=== PATIENT | male | born 2005 | race Caucasian/White ===

== ENCOUNTER 2024-06-28 09:01 | Emergency (ER) | payer MEDICAID, SELFPAY ==
[2024-06-28 09:11] VITALS: BP 148/79; PULSE 78; RESP 18; TEMP 36.7; O2SAT 100
--- NOTE | 2024-06-28 09:19 | XR_ITS ---
Examination: CT abdomen with intravenous contrast CT pelvis with intravenous contrast 2-D coronal reconstructions 2-D sagittal reconstructions Date and time of exam:June 28, 2024 1139 hours INDICATIONS: Onset right lower abdominal pain beginning 4 days ago. CTDI: vol (mGy) 6.34 DLP: (mGycm) 359 Technique: Multiple axial sections of the abdomen and pelvis have been obtained. 64 slice high-resolution scanner used. 3 mm axial sections have been obtained, post intravenous injection 60 cc [id number] 2-D sagittal, coronal reconstructions obtained. Low dose protocols were performed. One or more of the following dose reduction techniques were used; automated exposure control, adjustment of the mA and/or KV according to patient size, use of iterative reconstruction technique. Findings: No focal liver or splenic lesions Suspicious for mild fluid around the gallbladder wall axial image 90 No pancreatic mass No hydronephrosis Aorta normal size No bowel obstruction Appendix is not diagnostically visualized No pericecal inflammatory change No bowel obstruction Urinary bladder intact Mild free fluid in the pelvis IMPRESSION: Recommend gallbladder sonography to exclude acute cholecystitis Appendix is not diagnostically visualized, no pericecal inflammatory change, clinical correlation advised
[2024-06-28] MEDS: ONDANSETRON INJ 2 MG/ML INJ 2 ML 4 MG IV (09:32)
[2024-06-28] MEDS: SODIUM CHLORIDE 0.9% 1000 ML 1,000 ML 999 ML IV (09:32)
[2024-06-28] MEDS: MORPHINE SULF INJ 10 MG/ML VIAL 4 MG IVP (09:34)
[2024-06-28 09:57] LABS: Basophils % (Auto) 0 % (0-2.5); Eosinophils # (Auto) 0.1 Thou/mm3 (0.0-0.5); Eosinophils % (Auto) 1 % (0-10); Hematocrit 48.3 % (41.0-53.0); Hemoglobin 17.1 g/dL (13.5-16.0); Immature Granulocytes % (Auto) 0 % (0-0); Immature Granulocytes Auto 0.05 Thou/mm3 (0.00-0.00); Lymphocytes # (Auto) 1.2 Thou/mm3 (1.0-4.8); Lymphocytes % (Auto) 10 % (10-50); Mean Corpuscular HGB Conc 35.4 g/dl (31.0-37.0); Mean Corpuscular Hemoglobin 31.7 pg (25.0-35.0); Mean Corpuscular Volume 89 fL (80-100); Monocytes # (Auto) 0.8 Thou/mm3 (0.0-0.8); Monocytes % (Auto) 6 % (0-12); Neutrophils # (Auto) 10.4 Thou/mm3 (1.8-7.7); Neutrophils % (Auto) 83 % (37-80); Nucleated Red Blood Cell % 0 /100 WBC (0); Platelet Count 232 Thou/mm3 (140-440); RDW Standard Deviation 39.7 fL (35.1-43.9); White Blood Count 12.5 Thou/mm3 (4.5-11.0)
--- NOTE | 2024-06-28 10:11 | PD.EDABDPN ---
ED Abdominal Pain RME/HPI General Chief Complaint: Abdominal Pain Stated complaint: ABD PAIN, OFF/ON 4-5 DAYS Time seen by provider: 06/28/24 10:08 Arrival date/time: 06/28/24 09:01 Limitations: no limitations RME / HPI RME / HPI narrative: 19 year old male with history of depression and bipolar disorder presents to the ED for evaluation of abdominal pain beginning 3 days ago. Described as aching in sensation that is located most just below umbilicus that radiates to the right lower quadrant. Accompanied by nausea, vomiting, and diarrhea. Denies any history of similar pain or contacts with similar GI symptoms. Denies fevers, chills, cough, or urinary symptoms. Denies any abdominal surgeries. Related Data Home Medications ?Medication ?Instructions ?Recorded ?Confirmed escitalopram oxalate 20 mg tablet 20 mg PO QDAY 05/17/21 05/17/21 lurasidone 20 mg tablet (Latuda) 20 mg PO QDAY 05/17/21 05/17/21 lurasidone 40 mg tablet (Latuda) 40 mg PO QDAY 05/17/21 05/17/21 Previous Rx's ?Medication ?Instructions ?Recorded dicyclomine 20 mg tablet 20 mg PO BID #20 tabs 06/28/24 ondansetron HCl 4 mg tablet 4 mg PO TID PRN nausea and 06/28/24 vomiting 8 days #20 tabs Allergies Allergy/AdvReac Type Severity Reaction Status Date / Time No Known Allergies Allergy Verified 06/28/24 09:04 Review of Systems Review of Systems Narrative Review of Systems: GEN: No fever, no chills, no weight loss EYES: No discharge, no visual changes, no pain HEENT: No ear pain, no congestion, no sore throat PULM: No shortness of breath, no cough, no congestion CV: No chest pain, no palpitations GI: +n/v/d, + pain, no constipation : No frequency, no urgency, no dysuria MUSC/SKEL: No joint pain, no back pain SKIN: No rash NEURO: No weakness, no headache Past Medical History Past Medical History NEUROLOGIC: Positive Cerebrovascular Accident CARDIAC: Positive Hypertension RESPIRATORY: Positive Asthma (as a kid) PSYCHO/SOCIAL: Positive Bipolar Disorder, Depression, Behavior Problems and Self-Mutilation Family History FAMILY HISTORY: Positive Family Cardiac Disorders Social History SMOKING STATUS: Current every day smoker SUBSTANCE USE: marijuana (occasionally) ED Exam General Limitations: Present no limitations General appearance: Present alert and in no apparent distress Head Head exam: Present atraumatic, normocephalic and normal inspection Eye Eye exam: Present normal appearance, PERRL and EOMI ENT ENT exam: Present normal exam, normal oropharynx and mucous membranes moist Neck Neck exam: Present normal inspection, full ROM and trachea midline Chest Chest inspection: Present normal inspection and symmetric chest wall rise Respiratory Respiratory exam: Present normal lung sounds bilaterally Cardiovascular Cardiovascular exam: Present regular rate, normal rhythm and normal heart sounds Abdominal Exam Abdominal exam: Present soft, tenderness (RLQ ) and normal bowel sounds Extremities Exam Extremities exam: Present normal inspection and full ROM Back Exam Back exam: Present normal inspection and full ROM Neurological Exam Neurological exam: Present alert, oriented X3 and CN II-XII intact Psychiatric Psychiatric exam: Present normal affect and normal mood Skin Skin exam: Present warm, dry, intact and normal color Course Quality Measures none Orders Category Date Time Status CT Screening NOW Care 06/28/24 09:19 Active Insert IV NOW Care 06/28/24 09:[address] abdomen pelvis w con Stat Exams 06/28/24 09:19 Completed CBC Stat Lab 06/28/24 09:35 Completed Comprehensive Metabolic Panel Stat Lab 06/28/24 09:35 Completed Drug Screen,Urine Stat Lab 06/28/24 12:15 Completed Lipase Stat Lab 06/28/24 09:35 Completed UA, C/S IF [Urinalysis, C/S if Indicated] Stat Lab 06/28/24 12:15 Completed Morphine Inj Med 06/28/24 09:19 Discontinued 4 mg IVP X1 ONE Ondansetron Inj [Zofran Inj] Med 06/28/24 09:19 Discontinued 4 mg IV X1 ONE Sodium Chloride 0.9% 1000 ml [Ns] 1,000 ml Med 06/28/24 09:19 Discontinued IV 999 mls/hr Vital Signs Vital signs: Vital Signs Temperature 98.1 F 06/28/24 09:11 Pulse Rate 78 06/28/24 09:11 Respiratory Rate 18 06/28/24 09:11 Blood Pressure 148/79 H 06/28/24 09:11 Pulse Oximetry (%) 100 06/28/24 09:11 Oxygen Delivery Method Room Air 06/28/24 09:11 Pulse ox is 100% on room air which is adequate. Abdominal Pain MDM MDM Narrative MDM Narrative:: Luz Maria Talley am scribing for and in the presence of Dr. Schreiber. 19 year old male presented to the ED for right lower abdominal pain beginning 3 days ago. On examination patient had right lower quadrant tenderness. Plan to order abdomen/pelvis to rule out appendicitis. CT scan was negative for appendicitis. Patient diagnosed with biliary colic and prescribed Bentyl and Zofran. Advised patient follow up with PMD. Patient data External records reviewed:: [facility] previous records (I reviewed ED visit on 10/28/2023 ) Clinical information provided by:: patient Social determinants that could affect healthcare access:: none Patient has the following chronic illnesses:: None reported How is presenting disease/condition affected by chronic disease/condition?: no chronic disease Evaluation data The following diagnostics were reviewed and interpreted by me:: lab results and radiology exam(s) Lab and/or radiology exams considered but not ordered:: None Interpretation Summary: Ordering Physician: Ga BRYANT)Grant NP Date of Service: 06/28/24 Procedure(s): CT abdomen pelvis w con Accession Number(s): [id number] cc: Ga BRYANT),Grant GROVER; Gerson Mortensen MD; Sushil Gupta MD~ Examination: CT abdomen with intravenous contrast CT pelvis with intravenous contrast 2-D coronal reconstructions 2-D sagittal reconstructions Date and time of exam:June 28, 2024 1139 hours INDICATIONS: Onset right lower abdominal pain beginning 4 days ago. CTDI: vol (mGy) 6.34 DLP: (mGycm) 359 Technique: Multiple axial sections of the abdomen and pelvis have been obtained. 64 slice high-resolution scanner used. 3 mm axial sections have been obtained, post intravenous injection 60 cc [id number] 2-D sagittal, coronal reconstructions obtained. Low dose protocols were performed. One or more of the following dose reduction techniques were used; automated exposure control, adjustment of the mA and/or KV according to patient size, use of iterative reconstruction technique. Findings: No focal liver or splenic lesions Suspicious for mild fluid around the gallbladder wall axial image 90 No pancreatic mass No hydronephrosis Aorta normal size No bowel obstruction Appendix is not diagnostically visualized No pericecal inflammatory change No bowel obstruction Urinary bladder intact Mild free fluid in the pelvis IMPRESSION: Recommend gallbladder sonography to exclude acute cholecystitis Appendix is not diagnostically visualized, no pericecal inflammatory change, clinical correlation advised Dictated By: Sushil Gupta MD Signed By: <Electronically signed by Sushil Gupta MD in OV> 06/28/24 1211 Medications / Prescriptions Medications or Prescriptions considered but not ordered:: None Medication administrations:: Medication Administration History Discontinued Medications Sodium Chloride (Ns) 1,000 mls @ 999 mls/hr IV .Q1H1M ONE Stop: 06/28/24 10:19 Last Infusion: 06/28/24 10:09 Dose: Infused Documented By: Admin: 06/28/24 09:32 Dose: 999 mls/hr Documented By: KRANTHI Morphine Sulfate (Morphine Sulf Inj 10 Mg/Ml Vial) 4 mg IVP X1 ONE Stop: 06/28/24 09:20 Last Admin: 06/28/24 09:34 Dose: 4 mg Documented By: KRANTHI Ondansetron HCl (Ondansetron Inj 2 Mg/Ml Inj 2 Ml) 4 mg IV X1 ONE; Protocol Stop: 06/28/24 09:20 Last Admin: 06/28/24 09:32 Dose: 4 mg Documented By: KRANTHI See above Consultations Consultation(s) initiated? (list below): No Diagnosis Differential diagnosis abdominal pain: abdominal pain, acute appendicitis, calculus of kidney, constipation and diverticulitis Most likely diagnosis given after review of the tests above:: Biliary colic Admission Indicated Admission indicated?: not indicated Admission Request Was there a request for admission?: No Disposition Plan Disposition Plan: Discharge Discharge Attestation Discharge Attestation: The patient and all family members were given an opportunity to ask questions and understood the discharge instructions. Discharge instructions specifically effects, indications for sooner follow up or return to the emergency department, and the expected course of current diagnosis. Patient condition: Stable Discharge Plan Plan Patient Disposition: HOME (Self Care) Prescriptions/Referrals Prescriptions/Med Rec: New ondansetron HCl 4 mg tablet 4 mg PO TID PRN (Reason: nausea and vomiting) 8 Days Qty: 20 0RF dicyclomine 20 mg tablet 20 mg PO BID Qty: 20 0RF No Action escitalopram oxalate 20 mg tablet 20 mg PO QDAY Patient Comments: TAKE 1 TABLET BY MOUTH AT BEDTIME Latuda 40 mg tablet 40 mg PO QDAY Patient Comments: TAKE 1 TABLET BY MOUTH ONCE DAILY IN THE EVENING Latuda 20 mg tablet 20 mg PO QDAY Patient Comments: TAKE 1 TABLET BY MOUTH ONCE DAILY WITH DINNER Referrals: Gerson Mortensen MD [Primary Care Provider] - In 1 week Problem List Clinical Impression: Biliary colic Patient/Caregiver Discharge Instructions Discharge Activity: activity as tolerated Diet Instructions: Make sure to follow-up with your primary care physician and get referred to the general surgery for evaluation for possible cholecystectomy Education Materials: What Are Gallstones, Treating Gallstones, Discharge Instructions for ..., ED Gallstones with Biliary Colic Print Language: Lithuanian Stand Alone Forms: [employer] Award Info., Patient Portal Info Letter
[2024-06-28 10:17] LABS: Alanine Aminotransferase 145 U/L (10-49); Albumin, Serum 5.5 gm/dL (3.5-5.0); Albumin/Globulin Ratio 1.8 (1.2-2.2); Alkaline Phosphatase 68 U/L (46-116); Anion Gap 8 (7-16); Aspartate Amino Transferase 93 U/L (0-34); BUN/Creatinine Ratio 10 Ratio (12-20); Bilirubin,Total 0.6 mg/dL (0.3-1.2); Blood Urea Nitrogen 11 mg/dL (9-23); Carbon Dioxide 25.9 mMol/L (20.0-31.0); Chloride 106 mMol/L (98-107); Creatinine (Component) 1.1 mg/dL (0.6-1.3); Estimated Creatinine Clearance 106.5 mL/min (>60); Glucose 90 mg/dL (74-106); Lipase 34 U/L (12-53); Osmolality,Calculated 278 (275-295); Potassium 4.2 mMol/L (3.4-5.1); Sodium 140 mMol/L (136-145); Total Protein 8.5 gm/dL (5.7-8.2); eGFR > 60 See Note
[2024-06-28 10:44] VITALS: BP 141/86; PULSE 61; RESP 18; TEMP 37; O2SAT 99
[2024-06-28 12:25] LABS: Collection Type, Urine Clean Catch
[2024-06-28 12:43] LABS: Amphetamine/Methamp Scrn,U Negative (Negative); Barbiturate Screen,Urine Negative (Negative); Benzodiazepines Screen,Urine Negative (Negative); Benzoylecgonine Screen, Ur Negative (Negative); Bilirubin,Urine Negative (Negative); Blood,Urine Negative (Negative); Clarity,Urine Clear (Clear/Hazy); Color,Urine Yellow (Lt Yel-Yel); Culture Indicated,Urine Not Indicated; Fentanyl Screen,Urine Negative (Negative); Glucose, Urine Negative (Negative); Ketones,Urine Negative (Negative); Leukocyte Esterase,Urine Negative (Negative); Nitrite,Urine Negative (Negative); Opiate Screen,Urine Positive (Negative); PH,Urine 6.5 (5.0-7.0); Protein,Urine Trace (Neg - Trace); RBC,Urine 8 /hpf (0-3); Squamous Epithelial Cell,Urine < 1 /hpf (0-5); THC Screen,Urine Positive (Negative); Urobilinogen,Urine Negative mg/dL (0.0-1.0); WBC,Urine 1 /hpf (0-5)
[2024-06-28 13:15] LABS: Specific Gravity,Urine 1.015 (1.001-1.035)
[2024-06-28 14:02] VITALS: BP 114/64; PULSE 61; RESP 16; TEMP 37; O2SAT 99
== END 2024-06-28 14:03 | disposition home or self-care (01) ==
PROVIDERS: Nurse Practitioner Primary Care; Emergency Provider Emergency Medicine; PCP Family Medicine
DX: K80.50 Calculus of bile duct without cholangitis or cholecystitis without obstruction (principal); F31.9 Bipolar disorder, unspecified
CPT/HCPCS: 36415; 74177; 80053; 80307; 81001; 83690; 85025; 96361; 96374; 96375; 99285; A4649; J2270; J2405; J7030; Q9967

== ENCOUNTER 2024-10-25 11:07 | Emergency (ER) | payer MEDICAID, SELFPAY ==
--- NOTE | 2024-10-25 11:43 | XR_ITS ---
Examination: CT abdomen with intravenous contrast CT pelvis with intravenous contrast 2-D coronal reconstructions 2-D sagittal reconstructions Date and time of exam:October 25, 2024 1505 hours, comparison June 28, 2024 INDICATIONS: Onset right lower abdominal pain today. CTDI: vol (mGy) 5.32 DLP: (mGycm) 296 Technique: Multiple axial sections of the abdomen and pelvis have been obtained. 64 slice high-resolution scanner used. 3 mm axial sections have been obtained, post intravenous injection 60 cc Isovue-370. 2-D sagittal, coronal reconstructions obtained. Low dose protocols were performed. One or more of the following dose reduction techniques were used; automated exposure control, adjustment of the mA and/or KV according to patient size, use of iterative reconstruction technique. Findings: No focal liver or splenic lesions. No gallstones. No pancreatic mass. No renal or ureteral calculi, no hydronephrosis Aorta normal size. Normal appendix No bowel obstruction diverticulitis or free air. No prostatomegaly Minimal thickening of the urinary bladder wall up to 4 mm IMPRESSION: Normal appendix Minimal thickening of the urinary bladder wall, consider cystitis
--- NOTE | 2024-10-25 11:44 | PD.EDRME ---
Rapid Medical Screening Exam RME Arrival date/time: 10/25/24 11:07 19-year-old male with no significant medical problems presents to the emergency department today for complaints of lower abdominal pain Chief Complaint: Abdominal Pain Time Seen by Provider: 10/25/24 11:23
[2024-10-25 11:46] VITALS: BP 113/68; PULSE 70; RESP 16; TEMP 37; O2SAT 96; BMI 21.6
[2024-10-25 12:12] LABS: Collection Type, Urine Clean Catch; Squamous Epithelial Cell,Urine 0 /hpf (0-5)
[2024-10-25 12:41] LABS: Basophils # (Auto) 0.1 Thou/mm3 (0.0-0.2); Basophils % (Auto) 1 % (0-2.5); Eosinophils # (Auto) 0.1 Thou/mm3 (0.0-0.5); Eosinophils % (Auto) 1 % (0-10); Hematocrit 45.6 % (41.0-53.0); Hemoglobin 15.7 g/dL (13.5-16.0); Immature Granulocytes Auto 0.02 Thou/mm3 (0.00-0.00); Lymphocytes # (Auto) 1.3 Thou/mm3 (1.0-4.8); Lymphocytes % (Auto) 13 % (10-50); Mean Corpuscular HGB Conc 34.4 g/dl (31.0-37.0); Mean Corpuscular Hemoglobin 31.8 pg (25.0-35.0); Mean Corpuscular Volume 93 fL (80-100); Monocytes # (Auto) 0.6 Thou/mm3 (0.0-0.8); Monocytes % (Auto) 6 % (0-12); Neutrophils # (Auto) 7.7 Thou/mm3 (1.8-7.7); Neutrophils % (Auto) 79 % (37-80); Nucleated Red Blood Cell # 0.00 Thou/mm3 (0.00-0.00); Nucleated Red Blood Cell % 0 /100 WBC (0); Platelet Count 213 Thou/mm3 (140-440); RDW Standard Deviation 41.7 fL (35.1-43.9); Red Blood Count 4.93 Miln/mm3 (4.50-5.90); White Blood Count 9.8 Thou/mm3 (4.5-11.0)
[2024-10-25 13:13] LABS: Bacteria,Urine Rare; Bilirubin,Urine Negative (Negative); Blood,Urine Negative (Negative); Clarity,Urine Clear (Clear/Hazy); Color,Urine Lt-Yellow (Lt Yel-Yel); Culture Indicated,Urine Not Indicated; Glucose, Urine Negative (Negative); Ketones,Urine Negative (Negative); Leukocyte Esterase,Urine Negative (Negative); Nitrite,Urine Negative (Negative); PH,Urine 8.0 (5.0-7.0); Protein,Urine Negative (Neg - Trace); RBC,Urine 2 /hpf (0-3); Specific Gravity,Urine 1.011 (1.001-1.035); Urobilinogen,Urine Negative mg/dL (0.0-1.0); WBC,Urine 1 /hpf (0-5)
[2024-10-25 13:17] LABS: Alanine Aminotransferase 18 U/L (10-49); Albumin, Serum 4.8 gm/dL (3.5-5.0); Albumin/Globulin Ratio 2.1 (1.2-2.2); Alkaline Phosphatase 60 U/L (46-116); Anion Gap 9 (7-16); Aspartate Amino Transferase 20 U/L (0-34); BUN/Creatinine Ratio 8 Ratio (12-20); Bilirubin,Total 0.5 mg/dL (0.3-1.2); Blood Urea Nitrogen 9 mg/dL (9-23); Calcium 10.9 mg/dL (8.3-10.6); Calcium (Corrected) 10.9 mg/dL (8.5-10.1); Carbon Dioxide 26.7 mMol/L (20.0-31.0); Chloride 106 mMol/L (98-107); Creatinine (Component) 1.1 mg/dL (0.6-1.3); Estimated Creatinine Clearance 106.5 mL/min (>60); Globulin 2.3 gm/dL (2.3-3.5); Glucose 94 mg/dL (74-106); Lipase 27 U/L (12-53); Osmolality,Calculated 281 (275-295); Potassium 4.6 mMol/L (3.4-5.1); Sodium 142 mMol/L (136-145); Total Protein 7.1 gm/dL (5.7-8.2); eGFR > 60 See Note
--- NOTE | 2024-10-25 16:03 | EDNOTE_ITS ---
<Statement entered by Melanie Pearce MD - 11/04/24 11:08> As co-signing physician, I was present and available for consult prn. I concur with the plan and care as documented by the midlevel provider. ED Abdominal Pain RME/HPI General Chief Complaint: Abdominal Pain Stated complaint: GALLBLADDER FLARE UP Time seen by provider: 10/25/24 11:23 Arrival date/time: 10/25/24 11:07 19-year-old male presents to the emergency department for complaints of gallbladder flareup patient also ports right lower quadrant abdominal pain patient reports no fever patient does report nausea without vomiting Limitations: no limitations RME / HPI RME / HPI narrative: 10/25/24 11:07 19-year-old male with no significant medical problems presents to the emergency department today for complaints of lower abdominal pain Related Data Home Medications ?Medication ?Instructions ?Recorded ?Confirmed escitalopram oxalate 20 mg tablet 20 mg PO QDAY 05/17/21 lurasidone 20 mg tablet (Latuda) 20 mg PO QDAY 2 05/17/21 lurasidone 40 mg tablet (Latuda) 40 mg PO QDAY 2 05/17/21 Previous Rx's ?Medication ?Instructions ?Recorded dicyclomine 20 mg tablet 20 mg PO BID #20 tabs ibuprofen 600 mg tablet 600 mg PO Q6H #30 tabs 10/25 metoclopramide HCl 10 mg tablet 10 mg PO Q6H PRN nause a and 10/25/24 (Reglan) vomiting #30 tabs Allergies Allergy/AdvReac Type Severity Reaction Status Date / Time No Known Allergies Allergy Verified 10/25/24 11:11 Review of Systems Review of Systems Systems Reviewed: All systems reviewed, normal except as documented Constitutional Constitutional: Reports system reviewed and no additional complaints, except as documented, Denies fever(s) and Denies headache(s) Eyes Eyes: Reports system reviewed and no additional complaints, except as documented and Denies blurry vision ENT Ears, Nose, Mouth, and Throat: Reports system reviewed and no additional complaints, except as documented, Denies headache(s), Denies nasal congestion and Denies nasal discharge Cardiovascular Cardiovascular: Reports system reviewed and no additional complaints, except as documented, Denies chest pain and Denies dyspnea Respiratory Respiratory: Reports system reviewed and no additional complaints, except as documented, Denies chest congestion, Denies cough and Denies dyspnea Gastrointestinal Gastrointestinal: Reports system reviewed and no additional complaints, except as documented and Reports abdominal pain Integumentary/Breasts Skin/Breast: Reports system reviewed and no additional complaints, except as documented and Denies rash Neurologic Neurologic: Reports system reviewed and no additional complaints, except as documented, Reports as per HPI and Denies headache(s) Past Medical History Past Medical History NEUROLOGIC: Positive Cerebrovascular Accident CARDIAC: Positive Hypertension; Negative Cardiac Disorders or Congestive Heart Failure RESPIRATORY: Negative Chronic Obstructive Pulmonary Disease (COPD) or Asthma GENITOURINARY: Negative Renal Disease ENDOCRINE: Negative Diabetes Mellitus Type 1 or Diabetes Mellitus Type 2 HEMATOLOGIC: Negative Sickle Cell Disease PSYCHO/SOCIAL: Positive Bipolar Disorder, Depression, Behavior Problems and Self-Mutilation Family History FAMILY HISTORY: Positive Family Cardiac Disorders; Negative Family Respiratory Disorders Social History SMOKING STATUS: Current every day smoker SUBSTANCE USE: marijuana (occasionally) ED Exam General Limitations: Present no limitations General appearance: Present alert and in no apparent distress Head Head exam: Present atraumatic, normocephalic and normal inspection Eye Eye exam: Present normal appearance, PERRL and EOMI; Absent conjunctival injection ENT ENT exam: Present normal exam, normal oropharynx and mucous membranes moist Neck Neck exam: Present normal inspection, full ROM and trachea midline Chest Chest inspection: Present normal inspection and symmetric chest wall rise Respiratory Respiratory exam: Present normal lung sounds bilaterally; Absent respiratory distress Cardiovascular Cardiovascular exam: Present regular rate, normal rhythm and normal heart sounds Abdominal Exam Abdominal exam: Present soft, tenderness and normal bowel sounds; Absent distention, guarding, rebound, rigidity or Brannon's sign Abdominal tenderness: Present RLQ Extremities Exam Extremities exam: Present normal inspection and full ROM Back Exam Back exam: Present normal inspection and full ROM Neurological Exam Neurological exam: Present alert, oriented X3 and CN II-XII intact Psychiatric Psychiatric exam: Present normal affect and normal mood Skin Skin exam: Present warm, dry, intact and normal color Course Quality Measures none Orders Category Date Time Status CT Screening NOW Care 10/25/24 11:[address] abdomen pelvis w con Stat Exams 10/25/24 11:43 Completed CBC Stat Lab 10/25/24 12:22 Completed Comprehensive Metabolic Panel Stat Lab 10/25/24 12:22 Completed Lipase Stat Lab 10/25/24 12:22 Completed UA, C/S IF [Urinalysis, C/S if Indicated] Stat Lab 10/25/24 12:03 Completed Vital Signs Vital signs: Vital Signs Temperature 98.6 F 10/25/24 11:46 Pulse Rate 70 10/25/24 11:46 Respiratory Rate 16 10/25/24 11:46 Blood Pressure 113/68 10/25/24 11:46 Pulse Oximetry (%) 96 10/25/24 11:46 Oxygen Delivery Method Room Air 10/25/24 11:46 O2 saturation 96% room air within normal limits Abdominal Pain MDM MDM Narrative MDM Narrative:: 19-year-old male presents to the emergency department for complaints of gallbladder flareup patient also ports right lower quadrant abdominal pain patient reports no fever patient does report nausea without vomiting On exam patient well-appearing patient does not appear ill or toxic no acute distress Exam patient does have tenderness to the right side of his abdomen mostly in the right lower quadrant patient has negative Brannon sign Lab work imaging obtained no acute emergent bodies noted Patient discharged home in no distress to follow-up with primary care doctor in the next 24 to 48 hours and for any worsening symptoms to return to the ER immediately Patient data External records reviewed:: [facility] previous records Clinical information provided by:: patient Social determinants that could affect healthcare access:: none Patient has the following chronic illnesses:: None How is presenting disease/condition affected by chronic disease/condition?: no chronic disease Evaluation data The following diagnostics were reviewed and interpreted by me:: lab results and radiology exam(s) Lab and/or radiology exams considered but not ordered:: Labs radiology obtained Interpretation Summary: Reviewed by me Medications / Prescriptions Medications or Prescriptions considered but not ordered:: Given Medication administrations:: Given Consultations Consultation(s) initiated? (list below): No Diagnosis Differential diagnosis abdominal pain: abdominal pain, acute appendicitis, calculus of kidney, pancreatitis and small bowel obstruction Most likely diagnosis given after review of the tests above:: Abdominal pain Admission Indicated Admission indicated?: not indicated Admission Request Was there a request for admission?: No Disposition Plan Disposition Plan: Discharge Discharge Attestation Discharge Attestation: The patient and all family members were given an opportunity to ask questions and understood the discharge instructions. Discharge instructions specifically effects, indications for sooner follow up or return to the emergency department, and the expected course of current diagnosis. Patient condition: Stable Discharge Plan Plan Patient Disposition: HOME (Self Care) Discharge Disposition comment: Stable Prescriptions/Referrals Prescriptions/Med Rec: New ibuprofen 600 mg tablet 600 mg PO Q6H Qty: 30 0RF metoclopramide HCl [Reglan] 10 mg tablet 10 mg PO Q6H PRN (Reason: nausea and vomiting) Qty: 30 0RF No Action escitalopram oxalate 20 mg tablet 20 mg PO QDAY Patient Comments: TAKE 1 TABLET BY MOUTH AT BEDTIME Latuda 40 mg tablet 40 mg PO QDAY Patient Comments: TAKE 1 TABLET BY MOUTH ONCE DAILY IN THE EVENING Latuda 20 mg tablet 20 mg PO QDAY Patient Comments: TAKE 1 TABLET BY MOUTH ONCE DAILY WITH DINNER dicyclomine 20 mg tablet 20 mg PO BID Qty: 20 0RF Referrals: No Primary/Family,Physician [Primary Care Provider] - 10/26/24 Problem List Clinical Impression: Abdominal pain Patient/Caregiver Discharge Instructions Education Materials: Abdominal Pain Additional Instructions: Please follow up with your primary care doctor in the next 24-48hrs for any worsening symptoms return here immediately Print Language: Yoruba Stand Alone Forms: Carola Award Info., Patient Portal Info Letter PA/METAL BED ASSEMBLER Supervising Physician PA/NANETTE Supervising Physician: dr pearce
== END 2024-10-25 16:21 | disposition home or self-care (01) ==
PROVIDERS: Nurse Practitioner Primary Care; Emergency Provider Emergency Medicine
DX: R10.31 Right lower quadrant pain (principal)
CPT/HCPCS: 36415; 74177; 80053; 81001; 83690; 85025; 99284; A4649; Q9967

== ENCOUNTER 2024-12-21 18:38 | Emergency (ER) | payer MEDICAID, SELFPAY ==
[2024-12-21 18:40] VITALS: PULSE 82; RESP 18; O2SAT 99
[2024-12-21 18:42] VITALS: BMI 22.3
[2024-12-21 18:43] VITALS: BP 129/86; PULSE 88; RESP 18; TEMP 37.2; O2SAT 99; BMI 22.3
--- NOTE | 2024-12-21 18:43 | XR_ITS ---
Examination: Abdomen sonogram, Limited Date and time of exam: December 21, 2024, 1921 hours INDICATIONS: Worsening epigastric pain this week Technique: Real-time reyes scale transabdominal sonographic images of the upper abdomen obtained. Findings: Normal gallbladder. Common bile duct abnormally enlarged 6 mm no definite stones Pancreatic head 1.8 cm Liver 15.7 cm no liver lesions Normal hepatopetal portal venous flow Patent IVC IMPRESSION: Normal gallbladder Abnormal enlargement common bile duct, consider MRCP follow-up to exclude common bile duct stones
--- NOTE | 2024-12-21 18:44 | PD.EDNV ---
Nausea/Vomit./Diarrhea-RME/HPI General Chief complaint: Nausea/Vomiting/Diarrhea Stated complaint: NAUSEA/VOMITING Time Seen by Provider: 12/21/24 18:40 Arrival date/time: 12/21/24 18:38 19-year-old male patient came in for evaluation regarding vomiting. Patient donated plasma this morning, went home, smoked marijuana, went to sleep, and woke up vomiting at least 2 times. Patient is complaining of epigastric pain described as dull ache severity mild. Denies any fever denies any other complaints. Related Data Home Medications ?Medication ?Instructions ?Recorded ?Confirmed escitalopram oxalate 20 mg tablet 20 mg PO QDAY 05/17/21 05/17/21 lurasidone 20 mg tablet (Latuda) 20 mg PO QDAY 05/17/21 05/17/21 lurasidone 40 mg tablet (Latuda) 40 mg PO QDAY 05/17/21 05/17/21 Previous Rx's ?Medication ?Instructions ?Recorded dicyclomine 20 mg tablet 20 mg PO BID #20 tabs 06/28/24 ibuprofen 600 mg tablet 600 mg PO Q6H #30 tabs 10/25/24 metoclopramide HCl 10 mg tablet 10 mg PO Q6H PRN nausea and 10/25/24 (Reglan) vomiting #30 tabs famotidine 40 mg tablet (Pepcid) 40 mg PO BID #20 tabs 12/21/24 metoclopramide HCl 10 mg tablet 10 mg PO Q6H PRN nausea and 12/21/24 (Reglan) vomiting #30 tabs Allergies Allergy/AdvReac Type Severity Reaction Status Date / Time No Known Allergies Allergy Verified 10/25/24 11:11 Review of Systems Review of Systems Narrative Review of Systems: Review of system reviewed and within normal limits except mentioned in HPI ED Exam Narrative Physical exam: VITAL SIGNS: Reviewed. GENERAL APPEARANCE: Alert and interactive, follows commands, no acute distress, HEAD AND FACE: Non-traumatic. ENT: PERRL, pink conjunctivitis, eyelid no trauma, Mucous membrane moist. NECK: Supple, nontender, no nuchal rigidity. CHEST: No tenderness, no crepitus, no paradoxical movement, no retractions. LUNGS: Clear, well ventilated, symmetric, no rales, no wheezing, no ronchi, no stridor, good breath sounds bilaterally. HEART: Regular rate, regular rhythm, no murmur, no gallops. ABDOMEN: Soft, positive bowel sounds, nondistended, no guarding, epigastric tenderness, no rebound, no masses, RECTAL: Deferred. GENITAL: Deferred. NEUROLOGICAL: Gross motor function intact sensory function intact, Appropriate for age. MUSCULOSKELETAL: low back nontender, full range of motion. EXTREMITIES: Nontender, full range of motion. SKIN: Color pink, dry, no rash, no lacerations, no abrasions, no contusions. LYMPHATICS: Deferred. Course Quality Measures none Orders Category Date Time Status US gall bladder Stat Exams 12/21/24 18:43 Completed CBC Stat Lab 12/21/24 18:55 Completed Comprehensive Metabolic Panel Stat Lab 12/21/24 18:55 Completed Lipase Stat Lab 12/21/24 18:55 Completed Prothrombin Time with INR Stat Lab 12/21/24 18:55 Completed DiphenhydrAMINE [Benadryl] Med 12/21/24 18:43 Discontinued 50 mg PO X1 ONE Metoclopramide [Reglan] Med 12/21/24 18:43 Discontinued 10 mg PO X1 ONE mg Hyd/Al Hyd/Cher Susp [Maalox Susp] Med 12/21/24 18:43 Discontinued 30 ml PO X1 ONE Vital Signs Vital signs: Vital Signs Temperature 98.9 F 12/21/24 18:43 Pulse Rate 88 12/21/24 18:43 Respiratory Rate 18 12/21/24 18:43 Blood Pressure 129/86 H 12/21/24 18:43 Pulse Oximetry (%) 99 12/21/24 18:43 Oxygen Delivery Method Room Air 12/21/24 18:43 Nausea/Vomiting/Diarrhea MDM Narrative MDM Narrative:: 19-year-old male patient came in for evaluation regarding vomiting. Patient donated plasma this morning, went home, smoked marijuana, went to sleep, and woke up vomiting at least 2 times. Patient is complaining of epigastric pain described as dull ache severity mild. Denies any fever denies any other complaints. Patient CBC showed leukocytosis 17.2 CMP unremarkable atrial fibrillation with send for slight elevation of total bili of 1.4. Ultrasound of gallbladder came back unremarkable. Patient received Maalox, Benadryl, and Reglan with complete resolution of symptoms. Stable for discharge home Patient data External records reviewed:: None Clinical information provided by:: patient Social determinants that could affect healthcare access:: none Patient has the following chronic illnesses:: None How is presenting disease/condition affected by chronic disease/condition?: no chronic disease Evaluation data The following diagnostics were reviewed and interpreted by me:: lab results and radiology exam(s) Lab and/or radiology exams considered but not ordered:: None Interpretation Summary: see results MDM Medications / Prescriptions Medications / Prescriptions considered but not ordered:: None Medication administrations:: Medication Administration History Discontinued Medications Al Hydrox/Mg Hydrox/Simethicone (Mg Hyd/Al Hyd/Cher (Maalox Reg) Susp 30 Ml Udc) 30 ml PO X1 ONE Stop: 12/21/24 18:44 Last Admin: 12/21/24 19:58 Dose: 30 ml Documented By: Diphenhydramine HCl (Diphenhydramine 25 Mg Capsule) 50 mg PO X1 ONE Stop: 12/21/24 18:44 Last Admin: 12/21/24 19:58 Dose: 50 mg Documented By: Metoclopramide HCl (Metoclopramide 5 Mg Tablet) 10 mg PO X1 ONE Stop: 12/21/24 18:44 Last Admin: 12/21/24 18:52 Dose: 10 mg Documented By: Reglan, Benadryl and Maalox Consultations Consultation(s) initiated? (list below): No Diagnosis Nausea Differential Diagnosis: traveler's diarrhea, food poisoning, gastroenteritis and dehydration Most likely diagnosis given after review of the tests above:: Nausea and vomiting Admission Indicated Admission indicated?: not indicated Explain why admission is indicated or not indicated:: Stable Admission Request Was there a request for admission?: No Disposition Plan Disposition Plan: Discharge Discharge Attestation Discharge Attestation: The patient was given an opportunity to ask questions and understood the discharge instructions. Discharge instructions specifically effects, indications for sooner follow up or return to the emergency department, and the expected course of current diagnosis. Patient condition: Stable Discharge Plan Plan Patient Disposition: HOME (Self Care) Discharge Disposition comment: Stable Prescriptions/Referrals Prescriptions/Med Rec: New metoclopramide HCl [Reglan] 10 mg tablet 10 mg PO Q6H PRN (Reason: nausea and vomiting) Qty: 30 0RF famotidine [Pepcid] 40 mg tablet 40 mg PO BID Qty: 20 0RF No Action escitalopram oxalate 20 mg tablet 20 mg PO QDAY Patient Comments: TAKE 1 TABLET BY MOUTH AT BEDTIME Latuda 40 mg tablet 40 mg PO QDAY Patient Comments: TAKE 1 TABLET BY MOUTH ONCE DAILY IN THE EVENING Latuda 20 mg tablet 20 mg PO QDAY Patient Comments: TAKE 1 TABLET BY MOUTH ONCE DAILY WITH DINNER dicyclomine 20 mg tablet 20 mg PO BID Qty: 20 0RF ibuprofen 600 mg tablet 600 mg PO Q6H Qty: 30 0RF metoclopramide HCl [Reglan] 10 mg tablet 10 mg PO Q6H PRN (Reason: nausea and vomiting) Qty: 30 0RF Referrals: No Primary/Family,Physician [Primary Care Provider] - In 1 week Problem List Clinical Impression: Nausea & vomiting Patient/Caregiver Discharge Instructions Discharge Activity: activity as tolerated Education Materials: ED Diet for Vomiting or ... Additional Instructions: Thank you for the opportunity for serving you today. You are stable for discharged . You are advised to: Follow-up with your PCP in 1 to 2 days Return to ED for worsening of symptoms Increase oral fluids Take medication as prescribed Print Language: Citizen Of [place] Stand Alone Forms: Carola Award Info., Patient Portal Info Letter PA/COUNT TEAM MEMBER Supervising Physician OLAMIDE/NANETTE Supervising Physician: MD Wayne
[2024-12-21] MEDS: METOCLOPRAMIDE 5 MG TABLET 10 MG PO (18:52)
[2024-12-21 19:03] LABS: Basophils # (Auto) 0.1 Thou/mm3 (0.0-0.2); Basophils % (Auto) 0 % (0-2.5); Eosinophils # (Auto) 0.1 Thou/mm3 (0.0-0.5); Eosinophils % (Auto) 1 % (0-10); Hematocrit 54.2 % (41.0-53.0); Hemoglobin 18.6 g/dL (13.5-16.0); Immature Granulocytes Auto 0.11 Thou/mm3 (0.00-0.00); Lymphocytes # (Auto) 0.7 Thou/mm3 (1.0-4.8); Lymphocytes % (Auto) 4 % (10-50); Mean Corpuscular HGB Conc 34.3 g/dl (31.0-37.0); Mean Corpuscular Hemoglobin 31.7 pg (25.0-35.0); Mean Corpuscular Volume 92 fL (80-100); Monocytes # (Auto) 1.0 Thou/mm3 (0.0-0.8); Monocytes % (Auto) 6 % (0-12); Neutrophils # (Auto) 15.2 Thou/mm3 (1.8-7.7); Neutrophils % (Auto) 88 % (37-80); Nucleated Red Blood Cell # 0.00 Thou/mm3 (0.00-0.00); Nucleated Red Blood Cell % 0 /100 WBC (0); Platelet Count 218 Thou/mm3 (140-440); RDW Standard Deviation 42.6 fL (35.1-43.9); Red Blood Count 5.87 Miln/mm3 (4.50-5.90); White Blood Count 17.2 Thou/mm3 (4.5-11.0)
[2024-12-21 19:16] LABS: INR 1.1 (0.9-1.3); Prothrombin Time 11.3 Seconds (9.0-12.2)
[2024-12-21 19:24] LABS: Alanine Aminotransferase 11 U/L (10-49); Albumin, Serum 4.7 gm/dL (3.5-5.0); Albumin/Globulin Ratio 2.1 (1.2-2.2); Alkaline Phosphatase 55 U/L (46-116); Anion Gap 11 (7-16); Aspartate Amino Transferase 21 U/L (0-34); BUN/Creatinine Ratio 8 Ratio (12-20); Bilirubin,Total 1.4 mg/dL (0.3-1.2); Blood Urea Nitrogen 8 mg/dL (9-23); Calcium 9.8 mg/dL (8.3-10.6); Calcium (Corrected) 9.8 mg/dL (8.5-10.1); Carbon Dioxide 24.6 mMol/L (20.0-31.0); Chloride 105 mMol/L (98-107); Creatinine (Component) 1.0 mg/dL (0.6-1.3); Estimated Creatinine Clearance 121.0 mL/min (>60); Globulin 2.2 gm/dL (2.3-3.5); Glucose 97 mg/dL (74-106); Lipase 24 U/L (12-53); Osmolality,Calculated 279 (275-295); Potassium 4.3 mMol/L (3.4-5.1); Sodium 141 mMol/L (136-145); Total Protein 6.9 gm/dL (5.7-8.2); eGFR > 60 See Note
[2024-12-21] MEDS: MG HYD/AL HYD/SIME (Maalox Reg) SUSP 30 ML UDC PO (19:58)
== END 2024-12-21 21:28 | disposition home or self-care (01) ==
PROVIDERS: Nurse Practitioner Family; Emergency Provider Emergency Medicine
DX: R11.2 Nausea with vomiting, unspecified (principal)
CPT/HCPCS: 36415; 76705; 80053; 83690; 85025; 85610; 99283; A9270